=== PATIENT | female | born 1980 | race African-American/Black ===

== ENCOUNTER 2021-12-20 12:15 | Outpatient (CLI) | payer OTHER, SELFPAY ==
--- NOTE | ~2021-12-20 | MM_ITS ---
EXAMINATION: MM screening maria guadalupe BI w avery HISTORY: Screening TECHNIQUE: Craniocaudal and mediolateral oblique 3-D tomosynthesis images were obtained and synthetic 2-D images were generated. CAD analysis was submitted and interpreted. COMPARISON: No prior mammogram is available for comparison at this institution. BREAST PARENCHYMAL COMPOSITION: There are scattered areas of fibroglandular density. FINDINGS: There is no evidence of suspicious mass, calcification, or architectural distortion to sugg est malignancy in either breast. There has been no suspicious interval change. IMPRESSION: 1. No mammographic evidence of malignancy. 2. Recommend routine screening mammography in one year. BI-RADS Category 1: Negative Reviewed, dictated and finalized at location D.
== END 2021-12-20 12:16 | disposition home or self-care (01) ==
PROVIDERS: PCP Family Medicine; Visit Provider Family Medicine
DX: Z12.31 Encounter for screening mammogram for malignant neoplasm of breast (principal)
CPT/HCPCS: 77063; 77067

== ENCOUNTER 2025-02-17 08:07 | Outpatient (CLI) | payer OTHER, SELFPAY ==
--- NOTE | ~2025-02-17 | MM_ITS ---
EXAMINATION: MM screening maria guadalupe BI w avery HISTORY: Screening TECHNIQUE: Craniocaudal and mediolateral oblique 3-D tomosynthesis images were obtained and synthetic 2-D images were generated. CAD analysis was submitted and interpreted. COMPARISON: 12/20/2021 BREAST PARENCHYMAL COMPOSITION: Not Dense: There are scattered areas of fibroglandular density. FINDINGS: There is no evidence of suspicious mass, calcification, or architectural distortion to suggest malignancy in either breast. IMPRESSION: 1. No mammographic evidence of malignancy. 2. Recommend routine screening mammography in one year. BI-RADS Category 1: Negative Reviewed, dictated and finalized at location A. 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
--- OUTSIDE RECORDS SUMMARY | 2025-02-17 08:24 | XMS_ITS | Clinical Summary ---
Author Organization [facility] Address [facility] [place] [address] [address] Providers Care Drive Thru Order Taker Name Role Phone Ina Hamilton MD Primary Care Provider [phone] Allergies No known active allergies Medications Bacillus Coagulans-Inulin (PROBIOTIC-PREBI OTIC OR) Active ferrous sulfate, 65 mg elemental, 325 (65 FE) MG tabletIndication s:Iron deficiency anemia, unspecified iron deficiency anemia type Take 1 tablet (325 mg total) by mouth daily with breakfast. 90 tablet 1 5 Active sertraline (ZOLOFT) 25 MG tabletIndication s:SAMANTHA (generalized anxiety disorder) Take 1 tablet (25 mg total) by mouth daily. 90 tablet 1 5 Active ferrous sulfate, 65 mg elemental, 325 (65 FE) MG tabletIndication s:Iron deficiency anemia, unspecified iron deficiency anemia type Take 1 tablet (325 mg total) by mouth daily with breakfast. 90 tablet 1 5 02/04/20 25 Discontinu ed(Reorder ) sertraline (ZOLOFT) 25 MG tabletIndication s:SAMANTHA (generalized anxiety disorder) Take 1 tablet (25 mg total) by mouth daily. 90 tablet 1 5 02/04/20 25 Discontinu ed(Reorder ) Active Problems Problem Noted Date Diagnosed Date Iron deficiency anemia, unsp ecified iron deficiency anemia type 09/11/2024 Anxiety Depression Encounters Date Type Department Care Team Description 02/03/2025 3:20 PM INSTRUCTOR OF NURSING Office Visit [facility] - [place] [address] [facility] [address] [place], [place] [id number] Ina Hamilton MD Follow Up; Anxiety; Anemia 02/03/2025 Travel 12/09/2024 3:40 PM CDT Office Visit [facility] - [address] [place] [address] Ina Hamilton MD Follow Up (Declined flu shot ); Anxiety 12/09/2024 Travel from Last 3 Months Social History Tobacco Use Types Packs/Day Years Used Date Smoking Tobacco: Never Smokeless Tobacco: Never Tobacco Cessation:Counseling Given: Yes Comments:Counseled by Dr. Hamilton. Alcohol Use Standard Drinks/Week Comments Not Currently 0 (1 standard drink = 0.6 oz pur e alcohol) PHQ-2 Answer Date Recorded Patient Health Questionnaire-2 Score 0 02/03/2025 Comments No Sex and Gender Information Value Date Recorded Sex Assigned at Female 09/08/2024 2:55 PM CDT Legal Sex Female 8:40 AM CDT Gender Identity Not on file Sexual Orientation Not on file Last Filed Vital Signs Vital Sign Reading Time Taken Comments Blood Pressure 130/84 02/03/2025 3:38 PM INSTRUCTOR OF NURSING Pulse 73 02/03/2025 3:26 PM INSTRUCTOR OF NURSING Temperature 36.5 C (97.7 F) 02/03/2025 3:26 PM INSTRUCTOR OF NURSING Respiratory Rate 18 12/09/2024 3:41 PM CDT Oxygen Saturation 99% 02/03/2025 3:26 PM INSTRUCTOR OF NURSING Inhaled Oxygen Concentration - - Weight 103.2 kg (227 lb 9.6 oz) 02/03/2025 3:26 PM INSTRUCTOR OF NURSING Height 158.8 cm (5' 2.5) 02/03/2025 3:26 PM INSTRUCTOR OF NURSING Body Mass Index 40.97 02/03/2025 3:26 PM INSTRUCTOR OF NURSING Plan of Treatment Upcoming Encounters Date Type Department Care Team (Late st Contact Info) Description 05/04/2025 4:00 PM INSTRUCTOR OF NURSING Office Visit [facility] [place] [address] [address] [place] [address] Ina Hamilton MD [address] [place] [id number] Health Maintenance Due Date Last Done Comments Cervical Cancer Screening Pa p Smear (Age 30 to 64) Every 3 Years 1981 DTaP, Tdap and Td Vaccines ( 1 - Tdap) 2000 Hepatitis B Vaccines (1 of 3 - 19+ 3-dose series) 2000 HPV Vaccines (1 - 3-dose SCD M series) 2008 Cervical Cancer Screening Pa p with HPV Testing (Age 30 to 64) Every 5 Years 05/03/2011 Cervical Cancer Screening with HPV 05/03/2011 Mammogram Screening 2021 COVID-19 Vaccine ( - 2024-2 6 season) 2024 Influenza Adult (#1) 2024 Annual Physical 09/08/2025 09/08/2024 Hepatitis C Completed 09/10/2024 PHQ-2 (Physician [place]) Completed 02/03/2025 Hepatitis A Vaccines Aged Out No long er eligible based on patient's age to complete this topic Meningococcal B Vaccine Aged Out No l onger eligible based on patient's age to complete this topic Meningococcal Vaccine Aged Out No marisol tania eligible based on patient's age to complete this topic Pneumococcal Vaccine: Pediat rics (0 to 5 Years) and At-Risk Patients (6 to 49 Years) Aged Out No longer eligi ble based on patient's age to complete this topic RSV Immunizations Under 20 Months Aged Out No longer eligible based on patient's age to complete this topic Procedures Procedure Name Priority Date/Time Associated Diagnosis Comments COLLECTION VENOUS BLOOD VENIPUNCTURE Routine 02/03/2025 3:49 PM INSTRUCTOR OF NURSING Iron deficiency anemia, unspecified iron deficiency anemia type HEPATITIS C ANTIBODY Routine 09/10/2024 8:28 AM CDT Annual physical exam Establishing care with new doctor, encounter for Drug therapy from Last 3 Months or Most Recently Relevant to Health Maintenance Results * HEPATITIS C ANTIBODY (09/10/2024 8:28 AM CDT) HEPATITIS C AB NON-REACTI VE NON-REACT BRITT 09/12/2024 2:26 PM CDT [facility] Comment: ANTIBODIES TO HCV NOT DETECTED. DOES NOT EXCLUDE THE POSSIBILITY OF EXPOSURE TO HCV. 09/10/2024 8:28 AM CDT Ina Hamilton MD LABORATORY Final Result [facility] [address] [place] [address], [id number] from Last 3 Months or Most Recently Relevant to Health Maintenance Insurance [employer] Care Teams Drive Thru Order Taker Relationship Specialty Start Date End Date Ina Hamilton MD [address] [facility] [address] [place] [address] PCP - General INTERNAL MEDICINE 09/08/24
== END 2025-02-17 08:08 | disposition home or self-care (01) ==
LOC: ANHFOHIMG 08:11
PROVIDERS: PCP Internal Medicine; Visit Provider Internal Medicine
DX: Z12.31 Encounter for screening mammogram for malignant neoplasm of breast (principal)
CPT/HCPCS: 77063; 77067